=== PATIENT | male | born 2000 | race Caucasian/White ===

== ENCOUNTER 2019-03-02 22:05 | Emergency (ER) | payer OTHER ==
[~2019-03-02] VITALS: Ht 175.3 cm; Wt 68.2 kg
[2019-03-02 22:21] VITALS: TEMP 98.2
[2019-03-03 01:02] VITALS: BP 122/80; PULSE 84
== END 2019-03-03 01:06 | disposition home or self-care (01) ==
LOC: COL.ER 22:05
DX: T51.0X1A Toxic effect of ethanol, accidental (unintentional), initial encounter (principal); R51 Headache; E86.0 Dehydration; F90.9 Attention-deficit hyperactivity disorder, unspecified type
CPT/HCPCS: J1885; J2405; J7030